=== PATIENT | male | born 1970 | race Two or more races ===

== ENCOUNTER 2018-04-19 08:44 | Inpatient (IN) | payer MEDICAID, OTHER ==
[~2018-04-19] VITALS: Ht 175.3 cm; Wt 107.0 kg
[~2018-04-19 08:44] MED LIST: ASPI-41 PO; ATOR10TA PO; COL100C PO; LOP25T PO; NORCO10T PO
[2018-04-19] MEDS ORDERED: aspirin 81mg tab.chew PO ONE (09:00)
[2018-04-19] MEDS ORDERED: heparin 10,000 units/1 ML INJ IV ONE ×2 (09:10→09:15)
[2018-04-19 09:13] LABS: BASOPHILS # (AUTO) 0.1 X10'3 (0-0.2); BASOPHILS % (AUTO) 0.6 % (0-1); EOSINOPHILS # (AUTO) 0.3 X10'3 (0-0.9); EOSINOPHILS % (AUTO) 3.4 % (0-6); HEMATOCRIT 44.3 % (42.0-52.0); HEMOGLOBIN 14.2 g/dl (14.0-17.9); LYMPHOCYTES # (AUTO) 4.7 X10'3 (1.1-4.8); LYMPHOCYTES % (AUTO) 53.3 % (21-51); MEAN CORPUSCULAR HEMOGLOBIN 27.3 PG (27.0-31.0); MEAN CORPUSCULAR HGB CONC 32.1 % (33.0-36.5); MEAN PLATELET VOLUME 8.6 FL (7.4-10.4); MONOCYTES # (AUTO) 0.8 X10'3 (0-0.9); MONOCYTES % (AUTO) 9.3 % (2-12); NEUTROPHILS # (AUTO) 2.9 X10'3 (1.8-7.7); NEUTROPHILS % (AUTO) 33.4 % (42-75); PLATELET COUNT 225 X10'3 (140-440); RED BLOOD COUNT 5.21 X10'6 (4.70-6.10); RED CELL DISTRIBUTION WIDTH 13.6 % (11.5-14.5); WHITE BLOOD COUNT 8.8 X10'3 (4.5-11.0)
[2018-04-19 09:20] LABS: ALANINE AMINOTRANSFERASE 40 U/L (12-78); ALBUMIN 3.5 G/DL (3.4-5.0); ALBUMIN/GLOBULIN RATIO 0.9 (1.1-1.5); ALKALINE PHOSPHATASE 79 IU/L (46-116); ANION GAP 7 (8-16); ASPARTATE AMINO TRANSFERASE 16 U/L (10-37); BILIRUBIN,TOTAL 0.7 MG/DL (0.1-1.0); BLOOD UREA NITROGEN 19 MG/DL (7-18); BUN/CREATININE RATIO 18.4 (5.4-32.0); CALCIUM 8.5 MG/DL (8.5-10.1); CHLORIDE 106 MMOL/L (99-107); CREATININE 1.03 MG/DL (0.60-1.10); GLUCOSE 191 MG/DL (70-104); POTASSIUM 3.9 MMOL/L (3.5-5.1); SODIUM 139 MMOL/L (135-145); TOTAL PROTEIN 7.5 G/DL (6.4-8.2); eGFR 77 ML/MIN
[2018-04-19] MEDS: heparin 10,000 units/1 ML INJ IV PRN ×2 (09:28→17:10)
[2018-04-19 09:43] LABS: PROTHROMBIN TIME 10.8 SECONDS (9.0-12.0)
[2018-04-19] MEDS ORDERED: CARV3.12 PO (10:06)
[2018-04-19] MEDS ORDERED: ASPI-1264 PO (10:07)
[2018-04-19] MEDS ORDERED: Fish Oil PO (10:08)
[2018-04-19] MEDS ORDERED: ATOR80TA PO (10:08)
[2018-04-19] MEDS ORDERED: normal saline 1000ml 1,000 ML IV SCH (12:03)
[2018-04-19] MEDS ORDERED: acetaminophen 325mg tablet PO PRN ×2 (12:05→23:35)
[2018-04-19] MEDS ORDERED: magnesium hydroxide 30ml (MOM) UD suspension PO PRN ×2 (12:05→23:35)
[2018-04-19] MEDS ORDERED: mag hydrox/Alum hydrox/simeth 30ml oral suspension PO PRN (12:05)
[2018-04-19] MEDS ORDERED: ondansetron/PF 4mg/2ml inj IV PRN (12:05)
[2018-04-19] MEDS ORDERED: morphine 4 MG/ML inj SYRINge IV PRN ×2 (12:05)
[2018-04-19] MEDS ORDERED: nitroGLYCERIN 0.4mg SUBLingual tab SL PRN (14:15)
[2018-04-19 16:02] VITALS: BP 99/65
[2018-04-19] MEDS ORDERED: normal saline 1000ml 1,000 ML IV ONE (18:00)
[2018-04-19] MEDS ORDERED: fentaNYL/PF 50MCG/1 ML 2ML syringe ONE (19:58)
[2018-04-19] MEDS ORDERED: midazolam 2 mg/2 ml injection ONE (19:58)
[2018-04-19] MEDS ORDERED: LIDOcaine 1% w/EPI 1:100,000 30ml vial (MDV) ONE (19:58)
[2018-04-19] MEDS ORDERED: iohexol 350 MG/ML 50ML vial IV ONE (19:58)
[2018-04-19] MEDS ORDERED: iohexol 350MG/ML 100ml bottle IV ONE ×3 (19:58→21:18)
[2018-04-19] MEDS ORDERED: nitroGLYCERIN-Tridil 50MG/D5W 250 ML IV ONE (19:58)
[2018-04-19] MEDS ORDERED: heparin 1,000unit/ml 10ml vial 10 ML ONE (19:58)
[2018-04-19] MEDS ORDERED: carVEDilol 3.125mg tablet PO SCH (20:00)
[2018-04-19] MEDS ORDERED: DOPamine 400mg/D5W 250ml 250 ML IV ONE (20:31)
[2018-04-19] MEDS ORDERED: tirofiban 5mg in NS 100mL 100 ML IV ONE ×2 (20:50→21:10)
[2018-04-19] MEDS ORDERED: verapamil 2.5 mg/ml inj IV ONE (21:12)
[2018-04-19] MEDS ORDERED: ondansetron/PF 4mg/2ml inj ONE (21:17)
[2018-04-19] MEDS ORDERED: heparin 1,000 UNITS/NS 500ml 500 ML ONE (21:18)
[2018-04-19] MEDS ORDERED: tPA-cathflo 2 MG/2 ml IV flush ICATH ONE (21:45)
[2018-04-19 22:45] VITALS: BP 136/64
[2018-04-19 23:00] VITALS: BP 132/60
[2018-04-19 23:15] VITALS: BP 126/58
[2018-04-19 23:30] VITALS: BP 130/64
[2018-04-19] MEDS ORDERED: aspirin 325mg tablet PO ONE (23:30)
[2018-04-19] MEDS ORDERED: HYDROcodone/acetaminophen 10/325mg tab PO PRN (23:35)
[2018-04-19 23:45] VITALS: BP 132/62
[2018-04-19] MEDS: tirofiban 5mg in NS 100mL 100 ML IV SCH (23:55)
[2018-04-20] VITALS (35 sets, daily range): BP systolic 96–148; BP diastolic 50–90
[2018-04-20] MEDS: proCHLORperazine 10 MG/2 ml inj IV PRN ×2 (00:29→11:57)
[2018-04-20] MEDS: OXAZEpam 15mg capsule PO PRN (00:29)
[2018-04-20] MEDS: morphine 4 MG/ML inj SYRINge IV PRN ×2 (00:29→05:48)
[2018-04-20] MEDS: cyclobenzaprine 10mg tablet PO PRN ×2 (00:29→22:10)
[2018-04-20 02:03] LABS: ALBUMIN 3.1 G/DL (3.4-5.0); ANION GAP 10 (8-16); BLOOD UREA NITROGEN 13 MG/DL (7-18); BUN/CREATININE RATIO 17.3 (5.4-32.0); CALCIUM 8.1 MG/DL (8.5-10.1); CHLORIDE 105 MMOL/L (99-107); CHOL/HDL RATIO 3.6 (0.00-4.99); CHOLESTEROL 133 MG/DL (0-200); CREATININE 0.75 MG/DL (0.60-1.10); GLUCOSE 145 MG/DL (70-104); HDL CHOLESTEROL 37 MG/DL (35-60); LDL CHOLESTEROL 87 MG/DL (50-100); POTASSIUM 3.6 MMOL/L (3.5-5.1); SODIUM 140 MMOL/L (135-145); TOTAL CARBON DIOXIDE 25.4 MMOL/L (24-32); TRIGLYCERIDES 76 MG/DL (20-135); eGFR > 90 ML/MIN
[2018-04-20] MEDS: tirofiban 5mg in NS 100mL 100 ML IV SCH ×4 (02:16→19:30)
[2018-04-20] MEDS: HYDROcodone/acetaminophen 10/325mg tab PO PRN ×2 (02:16→19:38)
[2018-04-20 02:17] LABS: BASOPHILS % (AUTO) 0.2 % (0-1); EOSINOPHILS % (AUTO) 0 % (0-6); HEMATOCRIT 38.3 % (42.0-52.0); HEMOGLOBIN 13.2 g/dl (14.0-17.9); LYMPHOCYTES # (AUTO) 1.2 X10'3 (1.1-4.8); LYMPHOCYTES % (AUTO) 10.8 % (21-51); MEAN CORPUSCULAR HGB CONC 34.4 % (33.0-36.5); MEAN CORPUSCULAR VOLUME 84.2 FL (78-98); MEAN PLATELET VOLUME 9.2 FL (7.4-10.4); MONOCYTES # (AUTO) 0.8 X10'3 (0-0.9); MONOCYTES % (AUTO) 7.4 % (2-12); NEUTROPHILS % (AUTO) 81.6 % (42-75); PLATELET COUNT 140 X10'3 (140-440); RED BLOOD COUNT 4.54 X10'6 (4.70-6.10); RED CELL DISTRIBUTION WIDTH 14.2 % (11.5-14.5)
[2018-04-20] MEDS ORDERED: potassium Cl 40MEQ/250ML bag 250 ML IV PRN ×2 (02:40)
[2018-04-20] MEDS ORDERED: magnesium 4gm in 100ml NS 100 ML IV PRN (02:40)
[2018-04-20 02:42] LABS: MAGNESIUM 1.6 MG/DL (1.5-2.4)
[2018-04-20] MEDS: magnesium/D5W IVPB 100 ML IV SCH ×2 (03:41→04:43)
[2018-04-20] MEDS ORDERED: potassium Cl 40MEQ/250ML bag 250 ML IV ONE (05:40)
[2018-04-20] MEDS: K and/or MAG REPLACEMENT MC SCH (08:00)
[2018-04-20] MEDS ORDERED: aspirin 81mg tablet.DR PO SCH (08:00)
[2018-04-20] MEDS: docusate sod 100mg capsule PO SCH ×2 (08:00→19:38)
[2018-04-20] MEDS ORDERED: atorvastatin 20mg tablet PO SCH (08:00)
[2018-04-20] MEDS ORDERED: aspirin 325mg tablet PO SCH (08:30)
[2018-04-20 08:50] LABS: PARTIAL THROMBOPLASTIN TIME 45 SECONDS (22-32)
[2018-04-20] MEDS: morphine 10mg/ml inj. IV PRN ×2 (08:54→18:05)
[2018-04-20] MEDS ORDERED: nitroGLYCERIN-Tridil 50MG/D5W 250 ML IV ONE (09:08)
[2018-04-20] MEDS ORDERED: heparin 1,000unit/ml 10ml vial 10 ML ONE (09:08)
[2018-04-20] MEDS ORDERED: LIDOcaine 1% 30ml preserv. free vial ONE ×2 (09:09→09:45)
[2018-04-20] MEDS ORDERED: iohexol 350 MG/1 ML 200ml bottle ONE (09:09)
[2018-04-20] MEDS ORDERED: HYDROmorphone 1 mg/ml syringe ONE (09:42)
[2018-04-20] MEDS ORDERED: DOPamine 400mg/D5W 250ml 250 ML IV ONE (09:57)
[2018-04-20] MEDS ORDERED: verapamil 2.5 mg/ml inj IV ONE (10:20)
[2018-04-20] MEDS ORDERED: ticagrelor 90mg tablet ONE (10:49)
[2018-04-20] MEDS ORDERED: tirofiban 5mg in NS 100mL 100 ML IV ONE (10:54)
[2018-04-20] MEDS ORDERED: normal saline 1000ml 1,000 ML IV SCH (11:15)
[2018-04-20 12:09] LABS: MAGNESIUM 1.9 MG/DL (1.5-2.4); POTASSIUM 3.8 MMOL/L (3.5-5.1)
[2018-04-20] MEDS: atorvastatin 20mg tablet PO SCH (14:21)
[2018-04-20] MEDS ORDERED: LIDOcaine 1.5% w/epinephrine 1:200,000 5ml ampul ONE (15:17)
[2018-04-21] VITALS (16 sets, daily range): BP systolic 83–127; BP diastolic 59–76
[2018-04-21] MEDS: HYDROcodone/acetaminophen 10/325mg tab PO PRN ×4 (00:29→19:22)
[2018-04-21] MEDS: tirofiban 5mg in NS 100mL 100 ML IV SCH ×2 (00:48→05:53)
[2018-04-21 05:40] LABS: BASOPHILS % (AUTO) 0.2 % (0-1); EOSINOPHILS % (AUTO) 0.4 % (0-6); HEMOGLOBIN 11.9 g/dl (14.0-17.9); LYMPHOCYTES # (AUTO) 1.5 X10'3 (1.1-4.8); LYMPHOCYTES % (AUTO) 16.7 % (21-51); MEAN CORPUSCULAR HEMOGLOBIN 28.8 PG (27.0-31.0); MEAN CORPUSCULAR HGB CONC 33.9 % (33.0-36.5); MEAN CORPUSCULAR VOLUME 84.8 FL (78-98); MEAN PLATELET VOLUME 9.5 FL (7.4-10.4); MONOCYTES # (AUTO) 1.1 X10'3 (0-0.9); MONOCYTES % (AUTO) 12.7 % (2-12); NEUTROPHILS # (AUTO) 6.1 X10'3 (1.8-7.7); PLATELET COUNT 106 X10'3 (140-440); RED BLOOD COUNT 4.13 X10'6 (4.70-6.10); RED CELL DISTRIBUTION WIDTH 14.1 % (11.5-14.5); WHITE BLOOD COUNT 8.7 X10'3 (4.5-11.0)
[2018-04-21 05:55] LABS: ALBUMIN 2.8 G/DL (3.4-5.0); ANION GAP 7 (8-16); BLOOD UREA NITROGEN 12 MG/DL (7-18); BUN/CREATININE RATIO 15.4 (5.4-32.0); CALCIUM 7.9 MG/DL (8.5-10.1); CHLORIDE 104 MMOL/L (99-107); CREATININE 0.78 MG/DL (0.60-1.10); GLUCOSE 116 MG/DL (70-104); MAGNESIUM 1.9 MG/DL (1.5-2.4); POTASSIUM 3.6 MMOL/L (3.5-5.1); SODIUM 139 MMOL/L (135-145); TOTAL CARBON DIOXIDE 27.8 MMOL/L (24-32); eGFR > 90 ML/MIN
[2018-04-21] MEDS ORDERED: potassium Cl 20 mEq SR tablet PO STA (06:46)
[2018-04-21] MEDS ORDERED: calcium chloride inj. 1,000 MG in normal saline 100ml IV soln 90 ML IV ONE (06:50)
[2018-04-21] MEDS: K and/or MAG REPLACEMENT MC SCH (06:53)
[2018-04-21] MEDS ORDERED: ticagrelor 90mg tablet PO ONE (07:10)
[2018-04-21] MEDS: docusate sod 100mg capsule PO SCH ×2 (07:16→19:22)
[2018-04-21] MEDS: atorvastatin 20mg tablet PO SCH (07:16)
[2018-04-21] MEDS: magnesium/D5W IVPB 100 ML IV SCH ×2 (07:19→08:30)
[2018-04-21] MEDS: aspirin 81mg tablet.DR PO SCH (08:36)
[2018-04-21] MEDS: proCHLORperazine 10 MG/2 ml inj IV PRN (12:39)
[2018-04-21] MEDS: OXAZEpam 15mg capsule PO PRN (17:05)
[2018-04-21] MEDS: ticagrelor 90mg tablet PO SCH (19:22)
[2018-04-22 02:00] VITALS: BP 111/79
[2018-04-22 04:00] VITALS: BP 120/74
[2018-04-22 06:01] LABS: BASOPHILS % (AUTO) 0.3 % (0-1); EOSINOPHILS % (AUTO) 0.2 % (0-6); HEMATOCRIT 36.4 % (42.0-52.0); HEMOGLOBIN 12.5 g/dl (14.0-17.9); LYMPHOCYTES # (AUTO) 1.3 X10'3 (1.1-4.8); LYMPHOCYTES % (AUTO) 13.4 % (21-51); MEAN CORPUSCULAR HEMOGLOBIN 28.8 PG (27.0-31.0); MEAN CORPUSCULAR HGB CONC 34.4 % (33.0-36.5); MEAN CORPUSCULAR VOLUME 83.9 FL (78-98); MEAN PLATELET VOLUME 9.1 FL (7.4-10.4); MONOCYTES # (AUTO) 1.4 X10'3 (0-0.9); MONOCYTES % (AUTO) 13.4 % (2-12); NEUTROPHILS # (AUTO) 7.3 X10'3 (1.8-7.7); NEUTROPHILS % (AUTO) 72.7 % (42-75); PLATELET COUNT 122 X10'3 (140-440); RED BLOOD COUNT 4.34 X10'6 (4.70-6.10); RED CELL DISTRIBUTION WIDTH 13.7 % (11.5-14.5); WHITE BLOOD COUNT 10.1 X10'3 (4.5-11.0)
[2018-04-22 06:18] LABS: ALBUMIN 2.9 G/DL (3.4-5.0); ANION GAP 8 (8-16); BLOOD UREA NITROGEN 9 MG/DL (7-18); BUN/CREATININE RATIO 9.9 (5.4-32.0); CALCIUM 8.7 MG/DL (8.5-10.1); CHLORIDE 104 MMOL/L (99-107); CREATININE 0.91 MG/DL (0.60-1.10); GLUCOSE 113 MG/DL (70-104); MAGNESIUM 1.6 MG/DL (1.5-2.4); POTASSIUM 3.8 MMOL/L (3.5-5.1); SODIUM 139 MMOL/L (135-145); TOTAL CARBON DIOXIDE 27.5 MMOL/L (24-32); eGFR 89 ML/MIN
[2018-04-22] MEDS: cyclobenzaprine 10mg tablet PO PRN (06:27)
[2018-04-22] MEDS: K and/or MAG REPLACEMENT MC SCH (06:48)
[2018-04-22 08:00] VITALS: BP 120/82
[2018-04-22] MEDS: docusate sod 100mg capsule PO SCH (08:00)
[2018-04-22] MEDS: ticagrelor 90mg tablet PO SCH (08:01)
[2018-04-22] MEDS: atorvastatin 20mg tablet PO SCH (08:02)
[2018-04-22] MEDS: aspirin 81mg tablet.DR PO SCH (08:02)
[2018-04-22] MEDS ORDERED: TICA90TA PO (08:50)
== END 2018-04-22 10:55 | disposition home or self-care (01) | DRG 174 ==
LOC: ER 08:45 → ED HOLD 12:03 → PCU 3S 15:42 → CICU 2S 22:35 → PCU 3S 04-21 14:05
PROVIDERS: ADMIT Family Medicine; ATTEND Internal Medicine
PROC: 4A023N8 Measurement of Cardiac Sampling and Pressure, Bilateral, Percutaneous Approach (ICD-10-PCS; principal; 2018-04-20)
PROC: 027035Z Dilation of Coronary Artery, One Artery with Two Drug-eluting Intraluminal Devices, Percutaneous Approach (ICD-10-PCS; 2018-04-20)
PROC: B2111ZZ Fluoroscopy of Multiple Coronary Arteries using Low Osmolar Contrast (ICD-10-PCS; 2018-04-20)
PROC: 02C03ZZ Extirpation of Matter from Coronary Artery, One Artery, Percutaneous Approach (ICD-10-PCS; 2018-04-20)
PROC: B2131ZZ Fluoroscopy of Multiple Coronary Artery Bypass Grafts using Low Osmolar Contrast (ICD-10-PCS; 2018-04-20)
PROC: B2151ZZ Fluoroscopy of Left Heart using Low Osmolar Contrast (ICD-10-PCS; 2018-04-20)
DX: I21.4 Non-ST elevation (NSTEMI) myocardial infarction (principal); I10 Essential (primary) hypertension; Z95.1 Presence of aortocoronary bypass graft; E78.5 Hyperlipidemia, unspecified; G47.30 Sleep apnea, unspecified; E78.00 Pure hypercholesterolemia, unspecified; I25.110 Atherosclerotic heart disease of native coronary artery with unstable angina pectoris; I25.2 Old myocardial infarction; Z79.82 Long term (current) use of aspirin; Z79.899 Other long term (current) drug therapy; Z90.49 Acquired absence of other specified parts of digestive tract
CPT/HCPCS: 36415; 71045; 80048; 80053; 80061; 83735; 83880; 84132; 84484; 85025; 85347; 85610; 85730; 87070; 92920; 92973; 92975; 93005; 93459; 93461; 96374; 99152; 99153; 99291; A6213; A6257; A6402; A6449; C1725; C1757; C1760; C1769; C1874; C1894; C9604; J0780; J1170; J1265; J1644; J2250; J2270; J2405; J2997; J3010; J3246; J3480; J3490; J7030; Q9967

== ENCOUNTER 2018-10-24 17:13 | Emergency (ER) | payer MEDICAID, OTHER ==
[~2018-10-24] VITALS: Ht 177.8 cm; Wt 104.5 kg
[~2018-10-24 17:13] MED LIST changes: +ASPI-1264 PO; -ASPI-41 PO; -ATOR10TA PO; +ATOR80TA PO; +CARV3.12 PO; -COL100C PO; -LOP25T PO; -NORCO10T PO; +TICA90TA PO
[2018-10-24 17:42] LABS: BASOPHILS % (AUTO) 0.6 % (0-1); EOSINOPHILS # (AUTO) 0.3 X10'3 (0-0.9); EOSINOPHILS % (AUTO) 3.4 % (0-6); HEMOGLOBIN 14.8 g/dl (14.0-17.9); LYMPHOCYTES # (AUTO) 2.7 X10'3 (1.1-4.8); LYMPHOCYTES % (AUTO) 35.4 % (21-51); MEAN CORPUSCULAR HEMOGLOBIN 27.6 PG (27.0-31.0); MEAN CORPUSCULAR HGB CONC 33.6 % (33.0-36.5); MEAN CORPUSCULAR VOLUME 82.4 FL (78-98); MEAN PLATELET VOLUME 8.3 FL (7.4-10.4); MONOCYTES # (AUTO) 0.7 X10'3 (0-0.9); MONOCYTES % (AUTO) 8.9 % (2-12); NEUTROPHILS % (AUTO) 51.7 % (42-75); PLATELET COUNT 232 X10'3 (140-440); RED BLOOD COUNT 5.35 X10'6 (4.70-6.10); RED CELL DISTRIBUTION WIDTH 14.9 % (11.5-14.5); WHITE BLOOD COUNT 7.7 X10'3 (4.5-11.0)
[2018-10-24 17:59] LABS: INR 1.1 INR; PARTIAL THROMBOPLASTIN TIME 30 SECONDS (22-32); PROTHROMBIN TIME 10.9 SECONDS (9.0-12.0)
[2018-10-24 18:00] LABS: ALANINE AMINOTRANSFERASE 44 U/L (12-78); ALBUMIN 4.1 G/DL (3.4-5.0); ALKALINE PHOSPHATASE 84 IU/L (46-116); ANION GAP 8 (8-16); ASPARTATE AMINO TRANSFERASE 27 U/L (10-37); BILIRUBIN,TOTAL 0.6 MG/DL (0.1-1.0); BLOOD UREA NITROGEN 13 MG/DL (7-18); BUN/CREATININE RATIO 12.1 (5.4-32.0); CALCIUM 9.3 MG/DL (8.5-10.1); CHLORIDE 103 MMOL/L (99-107); CREATININE 1.07 MG/DL (0.60-1.10); GLUCOSE 92 MG/DL (70-104); POTASSIUM 4.2 MMOL/L (3.5-5.1); SODIUM 142 MMOL/L (135-145); TOTAL PROTEIN 8.1 G/DL (6.4-8.2); eGFR 74 ML/MIN
[2018-10-24 19:38] VITALS: BP 134/79
== END 2018-10-25 00:18 | disposition home or self-care (01) ==
LOC: ER 17:13
DX: R07.89 Other chest pain (principal); E78.00 Pure hypercholesterolemia, unspecified; I25.2 Old myocardial infarction; Z90.49 Acquired absence of other specified parts of digestive tract; Z95.1 Presence of aortocoronary bypass graft; Z79.82 Long term (current) use of aspirin; Z79.899 Other long term (current) drug therapy
CPT/HCPCS: 36415; 71045; 80053; 84484; 85025; 85610; 85730; 93005; 99284